=== PATIENT | male | born 1960 | race Caucasian/White ===

== ENCOUNTER 2018-07-17 12:11 | Emergency (ER) | payer OTHER ==
[~2018-07-17] VITALS: Ht 172.7 cm; Wt 96.0 kg
[~2018-07-17 12:11] MED LIST: CLON-412 PO; CLON1TAB13 PO; HYDR-3720 PO; IBUP-1542 PO; METH500T PO; PRED20TA PO
[2018-07-17 12:27] VITALS: Ht 172.7 cm; Wt 96.0 kg
[2018-07-17] MEDS ORDERED: ASPIRIN 325 MG TAB PO STA (12:41)
[2018-07-17] MEDS ORDERED: ONDANSETRON 4 MG INJ IV STA ×2 (12:58→14:22)
[2018-07-17] MEDS ORDERED: morphine 4 MG/ML VIAL IV STA (12:58)
[2018-07-17] MEDS ORDERED: CLON1TAB13 PO (13:00)
[2018-07-17] MEDS ORDERED: ZOLP10TA PO (13:00)
[2018-07-17] MEDS ORDERED: QUET200T PO (13:00)
--- NOTE | 2018-07-17 13:09 | ERD ---
ER Documentation Chief Complaint Chief Complaint RECENT WITH RT ANT/POST RIB PAIN & OCCASSIONAL CP, + SMOKER HPI This is a 4-year-old male that presents to the emergency department with right- sided chest pain. The patient indicates that the pain began 2 weeks prior to arrival after he had blunt trauma to the right side of his chest. He stated he had tripped and fallen into a shopping cart. He landed on his right chest wall. He did not hit his head or lose consciousness. He indicates that for the past 2 weeks he has been having severe pain with inspiration over the right chest wall. He has a history of tobacco use. He denies any fever shaking or chills. He did not take any analgesic medication for the pain. He did see his primary care physician roughly 4 days prior to arrival. He was scheduled for an outpatient chest radiograph which has not yet been performed. Indicates that the pain has worsened and therefore he came to the emergency department to be further evaluated. He denies any chest pressure that radiates to the neck arm back or jaw on the left side. Indicates that the pain is persistent on the r ight chest wall and again is exacerbated when he takes in a deep breath or coughs. The pain does radiate to his right scapula. He denies any hemoptysis hematemesis or melanotic stools. ROS All systems reviewed and are negative except as per history of present illness. Medications Home Meds Active Scripts Ibuprofen* (Ibuprofen*) 800 Mg Tablet, 800 MG PO Q6H PRN for PAIN LEVEL 6-10, #30 TAB Prov:BARBER BECERRIL MD 07/17/18 Docusate Sodium* (Colace*) 100 Mg Capsule, 100 MG PO Q24H PRN for CONSTIPATION, #30 CAP Prov:BARBER BECERRIL MD 07/17/18 Hydrocodone/Acetaminophen ([place] 5-325 Tablet) 1 Each Tablet, 1 TAB PO Q6H PRN for PAIN, #20 TAB Prov:BARBER BECERRIL MD 07/17/18 Reported Medications Zolpidem Tartrate* (Ambien*) 10 Mg Tablet, 10 MG PO QHS PRN for INSOMNIA, TAB 07/17/18 Quetiapine Fumarate* (Seroquel*) 200 Mg Tablet, 200 MG PO HS, #30 TAB 07/17/18 Clonazepam* (Clonazepam*) 1 Mg Tablet, 1 MG PO TID PRN for ANXIETY, TAB 07/17/18 Discontinued Reported Medications Clonazepam* (Clonazepam*) 1 Mg Tablet, 1 MG PO TID PRN for ANXIETY, TAB 04/09/15 Discontinued Scripts Clonazepam* (Klonopin*) 1 Mg Tablet, 1 MG PO BID, #6 TAB Prov:CHAD ZIMMERMAN MD 07/23/15 Prednisone* (Prednisone*) 20 Mg Tab, 20 MG PO DAILY, #5 TAB Prov:LEKKOS,APOSTOLOS A. DO 04/09/15 Ibuprofen* (Ibuprofen*) 600 Mg Tablet, 600 MG PO Q8, #30 TAB Prov:LEKKOS,APOSTOLOS A. DO 04/09/15 Hydrocodone Bit-Acetaminophen* (Beck[place]eyer*) 7.5-325 Tablet, 2 TAB PO Q4H PRN for PAIN, #20 TAB Prov:LEKKOS,APOSTOLOS A. DO 04/09/15 Methocarbamol* (Robaxin*) 500 Mg Tab, 500 MG PO Q8, #20 TAB Prov:LEKKOS,APOSTOLOS A. DO 04/09/15 Allergies Allergies: Coded Allergies: No Known Allergy (Unverified , 07/17/18) PMhx/Soc History of Surgery: No Anesthesia Reaction: No Hx Neurological Disorder: No Hx Respiratory Disorders: No Hx Cardiac Disorders: No Hx Psychiatric Problems: Yes (anxiety ) Hx Miscellaneous Medical Probl: No Hx Alcohol Use: No Hx Substance Use: No Hx Tobacco Use: Yes Physical Exam Vitals Vital Signs Date Temp Pulse Resp B/P (MAP) Pulse Ox O2 O2 Flow FiO2 Time Delivery Rate 07/17/18 97.5 83 18 159/98 97 12:27 (118) Physical Exam Constitutional:Well-developed. Well-nourished. HEENT:Normocephalic. Atraumatic.Pupils were equal round reactive to light. Moist mucous membranes.No tonsillar exudates. Neck: No nuchal rigidity. No lymphadenopathy. No posterior cervical spine tenderness or step-offs. Respiratory: Not using accessory muscles of respiration.Lungs were clear to auscultation bilaterally. No rhonchi. No rales. No wheezing. Cardiovascular: Regular rate regular rhythm.No murmurs. No rubs were appreciated.S1, S2 normal. Distal pulses are palpable 2+ bilaterally. Specific tenderness over T5-6 and 7 on the anterior aspect extending to the posterior aspect just distal to the scapula. No crepitus no ecchymosis no flail chest. GI: Abdomen was soft. Nontender. Non Distended. No pulsatile abdominal masses or bruits. No rebound. No guarding. Bowel sounds were present and normal. Muscle skeletal: Full range of motion of both the upper and lower extremities bilaterally.Normal muscle tone.No assymetrical calf tenderness or swelling. Skin: No petechia, no purpura. No lesions on the palms or the soles of the feet. No maculopapular rash. NEURO: Patient was alert, awake, orientated x3.No facial droop. Gait observed and normal with no ataxia.Speech had regular rate and rhythm. No focal neurological deficits. Result Diagram: 07/17/18 1301 07/17/18 1330 Results 24 hrs Laboratory Tests Test 07/17/18 13:01 07/17/18 13:30 White Blood Count 6.7 10^3/ul Red Blood Count 5.20 10^6/ul Hemoglobin 14.9 g/dl Hematocrit 45.8 % Mean Corpuscular Volume 88.1 fl Mean Corpuscular Hemoglobin 28.7 pg Mean Corpuscular Hemoglobin Concent 32.5 g/dl Red Cell Distribution Width 12.7 % Platelet Count 242 10^3/UL Mean Platelet Volume 10.1 fl Immature Granulocytes % 0.300 % Neutrophils % 55.2 % Lymphocytes % 33.2 % Monocytes % 9.5 % Eosinophils % 1.2 % Basophils % 0.6 % Nucleated Red Blood Cells % 0.0 /100WBC Immature Granulocytes # 0.020 10^3/ul Neutrophils # 3.7 10^3/ul Lymphocytes # 2.2 10^3/ul Monocytes # 0.6 10^3/ul Eosinophils # 0.1 10^3/ul Basophils # 0.0 10^3/ul Nucleated Red Blood Cells # 0.0 10^3/ul Prothrombin Time 12.3 Sec Prothrombin Time Ratio 1.0 INR International Normalized Ratio 0.90 Activated Partial Thromboplast Time 28.8 Sec Sodium Level 141 mmol/L Potassium Level 4.1 mmol/L Chloride Level 104 mmol/L Carbon Dioxide Level 24 mmol/L Anion Gap 13 Blood Urea Nitrogen 12 mg/dl Creatinine 0.82 mg/dl Est Glomerular Filtrat Rate mL/min > 60 mL/min Glucose Level 105 mg/dl Calcium Level 9.8 mg/dl Total Bilirubin 0.3 mg/dl Direct Bilirubin 0.00 mg/dl Indirect Bilirubin 0.3 mg/dl Aspartate Amino Transf (AST/SGOT) 46 IU/L Alanine Aminotransferase (ALT/SGPT) 47 IU/L Alkaline Phosphatase 161 IU/L Creatine Kinase 175 IU/L Creatine Kinase Index 1.0 Creatinine Kinase MB (Mass) 1.67 ng/ml Troponin I < 0.012 ng/ml B-Type Natriuretic Peptide < 11 PG/ML Total Protein 8.3 g/dl Albumin 4.5 g/dl Globulin 3.80 g/dl Albumin/Globulin Ratio 1.18 Current Medications Medications Dose Sig/Ivan Start Time Status Last (Trade) Ordered Route PRN Stop Time Admin Dose Reason Admin Aspirin 325 mg ONCE STAT 07/17/18 DC 07/17/18 (Aspirin) PO 12:41 13:12 07/17/18 12:44 Morphine 4 mg ONCE STAT 07/17/18 DC 07/17/18 Sulfate IV 12:58 13:12 (morphine) 07/17/18 12:59 Ondansetron 4 mg ONCE STAT 07/17/18 DC 07/17/18 HCl (Zofran IV 12:58 13:12 Inj) 07/17/18 12:59 Procedures/MDM This is a 58-year-old male that presented to the emergency department with chest pain after blunt chest trauma. The patient was placed on a monitoring and evaluation advisor continuous pulse oximetry and IV access was established by nursing staff. The patient was immediately given aspirin however my clinical suspicion was low for myocardial ischemia. I did feel the patient's symptoms were result of a rib injury given that this has been present for over 2 weeks I do feel is necessary to obtain a CT scan of the chest to rule out for rib fracture pneumothorax or pulmonary contusion. The patient received intravenous morphine and Zofran for analgesic control. 12 Lead EKG tracing ordered and reviewed by myself showed: Normal sinus rhythm of 78 bpm and no arrhythmia. OH interval normal. QRS duration normal. No ST segment elevation No ST segment depression. No changes consistent with acute ischemia. CT scan of the chest indicated the following: There are subacute fractures involving the posterior and lateral views and 6 with lateral fracture of the seventh ribs. There is periosteal reaction consistent with some interval healing. There is adjacent pleural thickening with atelectasis of the superior segment right lobe and right middle lobe. Old fracture deformities of the seventh through ninth ribs on the right. Patient be sent home with analgesic medication. The patient was discharged home in fair condition. They were instructed to return to the emergency department at any time if there was any worsening of their condition. The patient stated they would follow up with their PCP in the next 24-48 hours to initiate a suitable medication regimen under the care of their PCP as well as to allow their PCP to monitor any drug reactions. The patient was discharged home with prescriptions after they gave informed consent to the new medication. They were also fully informed by myself on the adverse effects and adverse drug interactions in order to provide adequate safeguards to prevent possible adverse reactions to medications. Departure Diagnosis: Primary Impression: Rib fractures Encounter type: initial encounter Rib fracture type: multiple ribs Fracture type: closed Laterality: right Qualified Codes: S22.41XA - Multiple fractures of ribs, right side, initial encounter for closed fracture Condition: Fair BARBER BECERRIL MD Jul 17, 2018 13:09
[2018-07-17] MEDS ORDERED: IBUP-1544 PO (14:08)
[2018-07-17] MEDS ORDERED: HYDR-4011 PO (14:08)
[2018-07-17] MEDS ORDERED: DOCU-144 PO (14:08)
[2018-07-17] MEDS ORDERED: HYDROmorphONE 1 MG/ML SYG IV STA (14:22)
[2018-07-17 15:21] VITALS: BP 152/88; PULSE 77; RESP 18
== END 2018-07-17 15:22 | disposition home or self-care (01) ==
LOC: E/R 12:11
DX: S22.41XA Multiple fractures of ribs, right side, initial encounter for closed fracture (principal); W01.0XXA Fall on same level from slipping, tripping and stumbling without subsequent striking against object, initial encounter; Y92.9 Unspecified place or not applicable; Z87.891 Personal history of nicotine dependence
CPT/HCPCS: 71250; 80053; 82550; 82553; 83880; 84484; 85025; 85610; 85730; 93005; 96374; 96375; 96376; J1170; J2270; J2405; Z7502; Z7610